=== PATIENT | female | born 1975 | race Caucasian/White ===

== ENCOUNTER 2025-08-07 22:27 | Emergency (ER) | payer MEDICAID ==
[~2025-08-07] VITALS: Ht 162.6 cm; Wt 87.0 kg
[2025-08-07 22:35] VITALS: O2SAT 99
[2025-08-07] MEDS: SODIUM CHLORIDE 0.9% 1,000 ML IV ONE (23:36)
[2025-08-07 23:41] LABS: BASOPHILS % 0.6 % (0.0-2.0); EOSINOPHILS % 2.2 % (0.0-5.0); HEMATOCRIT. 38.1 % (36.0-48.0); HEMOGLOBIN. 12.7 g/dL (12.0-16.0); LYMPHOCYTES % 33.1 % (20.0-50.0); MEAN PLATELET VOLUME 7.6 fl (7.4-10.4); MONOCYTES % 6.8 % (2.0-8.0); NEUTROPHILS % 57.3 % (40.0-76.0); PLATELET 301 x1000/uL (130-400); RED BLOOD CELL COUNT 4.22 mill/uL (4.2-5.4); RED CELL DISTRIBUTION WIDTH 13.4 % (11.6-14.6)
[2025-08-07] MEDS: MECLIZINE 25MG TABLET PO ONE (23:42)
[2025-08-07 23:57] LABS: CREATININE 0.7 mg/dL (0.6-1.0); UREA NITROGEN BLOOD 12 mg/dL (9-23)
[2025-08-07 23:58] LABS: TROPONIN I HIGH SENSITIVITY 13 ng/L (3.0-34)
[2025-08-07 23:59] LABS: ASPARTATE AMINOTRANSFERASE 24 IU/L (<34); BILIRUBIN DIRECT 0.1 mg/dL (<=3.0); BILIRUBIN TOTAL 0.4 mg/dL (0.1-1.0); PROTEIN TOTAL 6.8 g/dL (6.0-8.3)
[2025-08-08] MEDS: IOHEXOL-350 100 ML BOTTLE ONE (01:03)
[2025-08-08 01:12] VITALS: BP 121/64; PULSE 68; RESP 15; TEMP 36.6; O2SAT 99
[2025-08-08] MEDS ORDERED: MECL-299 MT (01:38)
== END 2025-08-08 01:15 | disposition home or self-care (01) ==
LOC: ER 22:53 → CMPBEDREQ 08-08 07:47
DX: H81.399 Other peripheral vertigo, unspecified ear (principal); R06.02 Shortness of breath; Z79.899 Other long term (current) drug therapy
CPT/HCPCS: 99285; 96360; 80076; 80048; 83880; 83735; 85025; 84484; 36415; 93005; 70496; 70498; 70450; J8597; J7030; Q9967